=== PATIENT | female | born 1985 | race Caucasian/White ===

== ENCOUNTER 2018-09-02 05:13 | Inpatient (IN) ==
[2018-09-02] MEDS ORDERED: OXYTOCIN 20 UNITS in RINGER'S SOLUTION,LACTATED 1,000 ML IV ONE (05:29)
[2018-09-02] MEDS ORDERED: ceFAZolin SODIUM/DEXTROSE,ISO 2 GM/50 ML BAG IV ONE (05:29)
[2018-09-02] MEDS ORDERED: RINGER'S SOLUTION,LACTATED 1,000 ML IV PRN (05:29)
[2018-09-02] MEDS: RINGER'S SOLUTION,LACTATED 1,000 ML IV PRN ×2 (07:04→09:44)
--- NOTE | 2018-09-02 07:28 | ANES ---
Anesthesia Pre Procedure Eval Vitals/Labs: Last Vital Signs Temp 36.5 C 09/02/18 05:30 Pulse 88 09/02/18 05:30 Resp 20 09/02/18 05:30 BP 124/81 09/02/18 05:30 Pulse Ox 97 09/02/18 05:30 HOME MEDICATIONS Pnv No.122/Iron/Folic Acid [ Multi Tablet] 1 ea PO DAILY 01/29/18 [Last Taken Unknown] albuterol sulfate HFA 90 mcg/actuation aerosol inhaler 2 inh IH Q6H PRN 04/28/18 [Last Taken Unknown] ferrous sulfate 325 mg (65 mg iron) tablet 325 mg PO DAILY #30 tab 06/18/18 [Last Taken Unknown] Allergies/Adverse Reactions: Allergies Allergy/AdvReac Type Severity Reaction Status Date / Time meperidine [From Demerol] Allergy Mild Hives Verified 08/27/18 10:29 - Planned Procedure Planned Procedure: Repeat , poss. Abdominal Scar Revision Medication List Reviewed:: Yes Allergies Verified: Yes Medical History (Last Reviewed 09/02/18 @ 07:27 by Filemon Allison CRNA) Tobacco abuse (Inactive) Onset Date: ~03/01/14 Richar-Danlos syndrome (Chronic) Onset Date: ~2015 History of acute respiratory distress syndrome (ARDS) (Resolved) Onset Date: ~2010 medically induced coma x 1 month, ARDS, placed on vent Depression (Acute) Onset Date: ~2010 treated with Lexapro, no current meds. Asthma (Acute) Onset Date: ~2004 1 hospitalization. Pt has albuterol inhaler for PRN use. Anemia Onset Date: 06/18/18 w/ Migraine Bowel perforation Onset Date: ~05/2011 perforation during a cholecystectomy at [facility], pt became septic, transferred to [facility]. She was placed in medically induced coma x 1 month, developed ARDS and placed on a ventilator. History of chlamydia infection Onset Date: ~2001 History of wisdom tooth extraction Onset Date: ~2002 Surgical History (Last Reviewed 09/02/18 @ 07:27 by Filemon Allison CRNA) Previous section (Resolved) 2001- size, 2006-repeat c/s History of tonsillectomy and adenoidectomy Onset Date: ~2002 Hx of cholecystectomy Onset Date: ~2010 bowel perforation, sepsis, ARDS, ventilator Family History (Last Reviewed 09/02/18 @ 07:27 by Filemon Allison CRNA) Father Hypertension Mother Multiple sclerosis Glaucoma Myocardial infarction Cardiac arrest Anoxia of brain d/t cardiac arrest 05/2018. Projected 6 months for healing. Family/Other Richar-Danlos syndrome Grandfather Black lung disease Grandmother Hypertension Diabetes Glaucoma CAD (coronary artery disease) TIA (transient ischemic attack) - Family Anesthesia History Family History:: no untoward family reactions to anesthesia - Airway/Neck/Teeth Within Normal Limits:: Yes Teeth Condition: Intact Neck Exam: full range of motion, normal inspection Mallampatti Score: 2 Thyromental (T-M) distance: > 6 cm Mandibulo Hyoid distance: > 3 cm - Respiratory Respiratory: lungs clear, normal breath sounds Smoking Status: Current every day smoker Discussed smoking cessation including day of surgery: Yes Sleep Apnea currently treated: No Sleep Apnea by current assessment: No - Cardiovascular Patient History - Cardiac/Respiratory: Asthma Tolerates Activity: Good Heart Sounds: S1 & S2, Regular - Anesthesia Assessment and Plan ASA Class: PS, II Anesthesia Type Plan: Spinal - bilat TAP block for postop analgesia
[2018-09-02] MEDS ORDERED: SENNOSIDES 8.6 MG TABLET PO PRN (09:39)
[2018-09-02] MEDS ORDERED: ONDANSETRON HCL/PF 2 MG/ML VIAL IV PRN (09:39)
[2018-09-02] MEDS ORDERED: oxyCODONE HCL/ACETAMINOPHEN 1 TAB TABLET PO PRN (09:39)
[2018-09-02] MEDS ORDERED: SIMETHICONE 80 MG TAB.CHEW PO PRN (09:39)
[2018-09-02] MEDS ORDERED: BISACODYL 10 MG SUPP.RECT RC PRN (09:39)
--- NOTE | 2018-09-02 09:46 | OR ---
Operative Report - Dictated Report Narrative: Indication: 32-year-old 5 para 2021 at 39 2/7 weeks with prior section desires repeat section Pre Operative Diagnosis: 39 2/7-week intrauterine , Prior section x2, Asthma, Ehlor Danlos syndrome Post Operative Diagnosis: Same. Procedure: Repeat low transverse section. Abdominal scar revision -18 cm Surgeon: Fátima Luu DO Safety Consultant: OR staff Anesthesia: Spinal, TAP block Estimated Blood Loss: 200 mL Urine Output: 200 mL clear urine Fluids Replacement: 1500 mL of crystalloid Drains: Nagel to gravity Surgical Complications: None Specimens: Placenta to freezer Findings: Female born at 0830 on 09/02/2017 in cephalic presentation with Apgars 9 and 9, weighing 3171 g. Normal uterus, tubes, ovaries. Filmy adhesions to the uterus and anterior abdominal wall, thickened scar tissue along the anterior fascia. Technique: The patient was taken to the operating room and placed in dorsal supine position with a left lateral tilt. After adequate spinal anesthesia, nagel catheter inserted, SCDs placed, and 2 g of Ancef given preoperatively, the previous scar was excised in an elliptical fashion and the abdominal cavity was entered using sharp and blunt dissection. Two rolled laps were placed in the pericolic gutters on either side of the uterus. A transverse incision was made in the lower uterine segment and extended laterally and upwardly with digital traction. Clear fluid was noted upon amniotomy. The was delivered easily. The cord was clamped and cut after approximately 1 minute and the infant was handed off to awaiting peditrician. The placenta was allowed to deliver spontaneously. The uterus was cleared of clot and debris. Uterine incision was closed with 0 Vicryl using a running locked stitch. A second imbricating layer was placed. Excellent hemostasis was noted. The rolled laps were removed from the abdominal cavitiy. The peritoneum was closed with a running 3-0 Monocryl. The same suture was used to approximate the rectus and pyramidalis muscles. The fascia was closed with a running 0 Vicryl. The subcutaneous layer was closed with a running 3-0 Monocryl. The same suture was used to approximate the subdermal layer. The skin was closed with a running 4-0 Monocryl. 3 interrupted sutures were placed using 4-0 Monocryl to allow better approximation of the incision. Dermabond was placed over the incision. Sponge, lap, needle, and instrument count were correct x 2. Disposition: To post anesthesia care unit in good condition
--- NOTE | 2018-09-02 09:52 | ANES ---
Post Anesthesia Discharge - Transfer of Care Transfer of Care handoff given to nurse: Yes - Discharge from PACU Discharge from PACU when meets criteria: Yes
[2018-09-02] MEDS: oxyCODONE HCL/ACETAMINOPHEN 1 TAB TABLET PO PRN ×5 (10:50→23:04)
[2018-09-02] MEDS: IBUPROFEN 800 MG TABLET PO PRN ×3 (10:51→23:03)
--- NOTE | 2018-09-02 12:21 | ANES ---
Post Anesthesia Assessment - Vital Signs Vitals: Last Vital Signs Temp 36.6 C 09/02/18 11:45 Pulse 71 09/02/18 11:45 Resp 20 09/02/18 11:45 BP 133/71 09/02/18 11:45 Pulse Ox 98 09/02/18 11:45 Airway Patency: Normal - Mental Status Level Of Consciousness: Awake - Pain Level Pain Score: 6 - N/V Assessment Nausea/Vomiting Presence: None Dehydration:: No
--- NOTE | 2018-09-02 12:38 | ANES ---
Anesthesia Procedure Note Procedure Note: ANESTHESIA PROCEDURE NOTE Date of procedure: 09/02/2018. Time of procedure:[]. 50 Performed by: Chauncey Allison CRNA Radiation Therapy Technologist: [] Alexus Marquez RN . Preprocedure diagnosis: []. Status post section. Desire for postoperative analgesia. Post procedure diagnosis: Same. Procedure:[] Bilateral ultrasound-guided tap block. Indications: []. Postop analgesia Findings: [] Patient brought to PACU and placed in a supine position. Patient's right abdominal wall was prepped with ChloraPrep. Ultrasound was utilized to identify fascial layer between internal oblique and trans-abdominus muscles. A 20-gauge 4 inch regional block needle was advanced under ultrasound guidance until tip of needle was located just posterior to fascial layer. 20 mL of 0.25% Marcaine with epinephrine 1 200,000 was injected with adequate spread of local anesthesia noted. Procedure was then repeated on patient's left side. EBL: Minimal. Fluids: N/A. Specimen: N/A. Post procedure condition: The patient tolerated the procedure well. No complications were noted. Thank you for this consultation Chauncey Allison CRNA
[2018-09-02] MEDS: ENOXAPARIN SODIUM 40 MG/0.4 ML SYRG SC SCH (16:56)
[2018-09-02] MEDS: DOCUSATE SODIUM 100 MG CAPSULE PO SCH (20:04)
[2018-09-03] MEDS: oxyCODONE HCL/ACETAMINOPHEN 1 TAB TABLET PO PRN ×4 (04:48→19:41)
[2018-09-03] MEDS: IBUPROFEN 800 MG TABLET PO PRN ×3 (07:48→21:22)
[2018-09-03] MEDS: DOCUSATE SODIUM 100 MG CAPSULE PO SCH ×3 (07:48→21:21)
--- NOTE | 2018-09-03 09:18 | PN ---
Subjective - Date and Time Seen Date: 09/03/18 Time: 09:17 Objective - Vitals Vitals: Last Vital Signs Temp 36.6 C 09/03/18 05:00 Pulse 67 09/03/18 05:00 Resp 18 09/03/18 01:00 BP 128/69 09/03/18 05:00 Pulse Ox 96 09/03/18 05:00 Patient denies complaints. Tolerating regular diet. Ambulating without difficulty. Pain well controlled. Lochia wnl. Abdomen - soft, appropriately tender Incision -clean, dry, intact uterus - firm, at umbilicus -1 no calf tenderness Impression: Post op day #1 s/p repeat section with abdominal scar revision. Asthma-stable. The Ehlor Danlos syndrome-stable. Plan: Continue routine post-operative/ care Cauti Physician Documentation - Urinary Catheter Management Urethral (Dangelo) Date of Insertion: 09/02/18 Time of Insertion: 08:10 Date of Removal: 09/02/18 Time of Removal: 17:00
[2018-09-03] MEDS: ENOXAPARIN SODIUM 40 MG/0.4 ML SYRG SC SCH (17:03)
[2018-09-04] MEDS: oxyCODONE HCL/ACETAMINOPHEN 1 TAB TABLET PO PRN ×5 (00:14→23:06)
[2018-09-04] MEDS: IBUPROFEN 800 MG TABLET PO PRN ×3 (08:21→21:22)
[2018-09-04] MEDS: DOCUSATE SODIUM 100 MG CAPSULE PO SCH ×2 (08:21→20:13)
--- NOTE | 2018-09-04 13:54 | PN ---
Subjective - Date and Time Seen Date: 09/04/18 Time: 13:53 Objective - Vitals Vitals: Last Vital Signs Temp 36.5 C 09/04/18 09:00 Pulse 66 09/04/18 09:00 Resp 18 09/04/18 09:00 BP 133/69 09/04/18 09:00 Pulse Ox 98 09/04/18 09:00 Patient denies complaints. Ambulating well. Tolerating regular diet. Pain well controlled. Lochia wnl. Abdomen - soft, appropriately tender Incision - clean, dry, intact Uterus - firm, at umbilicus -2 No calf tenderness Impression: Post op day #2 s/p repeat section with abdominal scar revision. Asthma-stable. Plan: Continue routine post-operative/ care Cauti Physician Documentation - Urinary Catheter Management Urethral (Dangelo) Date of Insertion: 09/02/18 Time of Insertion: 08:10 Date of Removal: 09/02/18 Time of Removal: 17:00
[2018-09-04] MEDS: ENOXAPARIN SODIUM 40 MG/0.4 ML SYRG SC SCH (17:53)
[2018-09-05] MEDS: oxyCODONE HCL/ACETAMINOPHEN 1 TAB TABLET PO PRN ×2 (05:49→10:01)
[2018-09-05] MEDS: IBUPROFEN 800 MG TABLET PO PRN (05:49)
[2018-09-05 06:56] VITALS: BP 136/82
[2018-09-05] MEDS: DOCUSATE SODIUM 100 MG CAPSULE PO SCH (10:47)
--- NOTE | 2018-09-05 12:17 | PN ---
Subjective - Date and Time Seen Date: 09/05/18 Time: 12:15 Objective - Vitals Vitals: Last Vital Signs Temp 36.9 C 09/05/18 06:54 Pulse 60 09/05/18 06:54 Resp 14 09/05/18 06:54 BP 136/82 09/05/18 06:54 Pulse Ox 98 09/05/18 06:54 Patient denies complaints. Ambulating without difficulty. Tolerating regular diet. Pain well controlled. Lochia wnl. Abdomen - soft, appropriately tender Incision - [clean, dry, intact] Uterus - firm, at umbilicus -[3] No calf tenderness Impression: Post op day #3 s/p repeat section. Asthma-stable. 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 Ehler Danlos syndrome-stable. Depression-stable. Plan: Routine discharge instructions Cauti Physician Documentation - Urinary Catheter Management Urethral (Dangelo) Date of Insertion: 09/02/18 Time of Insertion: 08:10 Date of Removal: 09/02/18 Time of Removal: 17:00
--- NOTE | 2018-09-09 10:14 | PN ---
Subjective - Date and Time Seen Date: 09/09/18 Time: 10:14 Objective - Vitals Vitals: Last Vital Signs Temp 36.9 C 09/05/18 06:54 Pulse 60 09/05/18 06:54 Resp 14 09/05/18 06:54 BP 136/82 09/05/18 06:54 Pulse Ox 98 09/05/18 06:54 Cauti Physician Documentation - Urinary Catheter Management Urethral (Dangelo) Date of Insertion: 09/02/18 Time of Insertion: 08:10 Date of Removal: 09/02/18 Time of Removal: 17:00 History for MU Definition: * The number of deliveries resulting in a live the patient experienced prior to current hospitalization * The previous delivery of live twins or any live multiple gestation is considered one live event. *If primagravida or nulliparous is documented select zero for the number of previous live births. Live Events: 2
== END 2018-09-05 13:15 | disposition home or self-care (01) | DRG 787 ==
LOC: MS 05:13
PROVIDERS: ADMIT Obstetrics & Gynecology; ATTEND Obstetrics & Gynecology
CPT/HCPCS: 59025

== ENCOUNTER 2020-07-28 21:38 | Inpatient (IN) ==
[2020-07-28] MEDS ORDERED: EPINEPHrine 1 MG/ML AMPUL ONE (23:34)
[2020-07-28] MEDS ORDERED: NORMAL SALINE 20 ML VIAL ONE (23:34)
[2020-07-28] MEDS ORDERED: BUPIVACAINE HCL/EPINEPHRINE 50 ML VIAL IJ ONE (23:35)
[2020-07-28] MEDS ORDERED: ceFAZolin SODIUM 1 GM VIAL ONE (23:36)
--- NOTE | 2020-07-28 23:38 | ANES ---
Anesthesia Pre Procedure Eval Vitals/Labs: Last Vital Signs Temp 36.5 C 07/28/20 22:38 Pulse 87 07/28/20 22:38 Resp 16 07/28/20 22:38 BP 120/65 07/28/20 22:38 Pulse Ox 96 07/28/20 22:38 HOME MEDICATIONS albuterol sulfate 90 mcg/actuation aerosol inhaler 2 inh IH Q6H PRN 04/28/18 [Last Taken Unknown] prenat.vits,nav,[id number] 1 tab PO DAILY 01/10/20 [Last Taken 07/28/20] trazodone 50 mg tablet 50 mg PO HS #30 tab 05/23/20 [Last Taken Unknown] ferrous sulfate 325 mg (65 mg iron) tablet,delayed release 325 mg PO DAILY #30 tab 05/24/20 [Last Taken 07/28/20] Allergies/Adverse Reactions: Allergies Allergy/AdvReac Type Severity Reaction Status Date / Time meperidine [From Demerol] Allergy Mild Hives Verified 07/24/20 15:55 potassium Allergy RASH Verified 07/24/20 15:55 - Planned Procedure Planned Procedure: Medication List Reviewed:: Yes Allergies Verified: Yes Medical History (Last Reviewed 07/28/20 @ 23:37 by Filemon Allison CRNA) Anemia (Acute) Onset Date: 06/18/18 w/pregnancies Tobacco abuse (Inactive) Onset Date: ~03/01/14 Richar-Danlos syndrome (Chronic) Onset Date: ~2015 History of acute respiratory distress syndrome (ARDS) (Resolved) Onset Date: ~2010 medically induced coma x 1 month, ARDS, placed on vent Depression (Acute) Onset Date: ~2010 treated with Lexapro, no current meds. Asthma (Acute) Onset Date: ~2004 1 hospitalization. Pt has albuterol inhaler for PRN use. Migraine Bowel perforation Onset Date: ~05/2011 perforation during a cholecystectomy at [facility], pt became septic, transferred to [facility]. She was placed in medically induced coma x 1 month, developed ARDS and placed on a ventilator. History of chlamydia infection Onset Date: ~2001 Surgical History (Last Reviewed 07/28/20 @ 23:37 by Filemon Allison CRNA) Previous section (Resolved) Onset Date: ~2001 2001- size, 2006-repeat c/s, 2018-rpt . Abdominal Scar Revision Onset Date: 09/02/18 History of tonsillectomy and adenoidectomy Onset Date: ~2002 History of wisdom tooth extraction Onset Date: ~2002 Hx of cholecystectomy Onset Date: ~2010 bowel perforation, sepsis, ARDS, ventilator Family History (Last Reviewed 07/28/20 @ 23:37 by Filemon Allison CRNA) Father Hypertension Mother Multiple sclerosis Glaucoma Myocardial infarction Cardiac arrest Anoxia of brain d/t cardiac arrest 05/2018. Projected 6 months for healing. Family/Other Richar-Danlos syndrome Grandfather Black lung disease Grandmother Hypertension Diabetes Glaucoma CAD (coronary artery disease) TIA (transient ischemic attack) - Family Anesthesia History Family History:: no untoward family reactions to anesthesia - Airway/Neck/Teeth Within Normal Limits:: Yes Teeth Condition: intact Neck Exam: full range of motion Mallampatti Score: 2 Thyromental (T-M) distance: > 6 cm Mandibulo Hyoid distance: > 3 cm - Respiratory Respiratory History: asthma Respiratory Physical: lungs clear Smoking Status: Current every day smoker Discussed smoking cessation including day of surgery: Yes Sleep Apnea currently treated: No Sleep Apnea by current assessment: No - Cardiovascular Tolerate Activity: Good Heart Sounds: S1 & S2, Regular - Gastrointestinal NPO since: 2099 - Anesthesia Assessment and Plan ASA Class: PS, II, E Anesthesia Type Plan: Spinal - tap block Planned difficult intubation/equipment available: No
[2020-07-28] MEDS ORDERED: RINGER'S SOLUTION,LACTATED 1,000 ML IV PRN (23:48)
[2020-07-28] MEDS ORDERED: Oxytocin/Ringers Lactate 20 UNITS/1,000 ML BAG IV ONE (23:48)
[2020-07-28] MEDS ORDERED: AZITHROMYCIN 500 MG in DEXTROSE 5 % IN WATER 250 ML IV PRN ×2 (23:57)
[2020-07-29] MEDS ORDERED: CEFAZOLIN SODIUM/DEXTROSE,ISO 1 GM/50 ML BAG IV PRN
--- NOTE | 2020-07-29 00:18 | HP ---
Chief Complaint - Chief Complaint Date of Service: 07/28/20 Time of Service: 23:55 Chief Complaint: LOF, contractions History of Present Illness: 34 yo at 37w4d presents to L&D complaining of LOF and contractions of increasing frequency and intensity. This complicated by anemia, asthma, depression, Ehler-Danlos syndrome, migraines, smoker, prior C/S x 3, obesity, 1st trimester UTI, h/o bowel perforation with ARDS. Rh positive Rubella non-immune GBS negative Medical History (Last Reviewed 07/29/20 @ 00:06 by William Luu DO) Anemia (Acute) Onset Date: 06/18/18 w/pregnancies Tobacco abuse (Inactive) Onset Date: ~03/01/14 Richar-Danlos syndrome (Chronic) Onset Date: ~2015 History of acute respiratory distress syndrome (ARDS) (Resolved) Onset Date: ~2010 medically induced coma x 1 month, ARDS, placed on vent Depression (Acute) Onset Date: ~2010 treated with Lexapro, no current meds. Asthma (Acute) Onset Date: ~2004 1 hospitalization. Pt has albuterol inhaler for PRN use. Migraine Bowel perforation Onset Date: ~05/2011 perforation during a cholecystectomy at [facility], pt became septic, transferred to [facility]. She was placed in medically induced coma x 1 month, developed ARDS and placed on a ventilator. History of chlamydia infection Onset Date: ~2001 Surgical History: Surgical History (Last Reviewed 07/29/20 @ 00:06 by William Luu DO) Previous section (Resolved) Onset Date: ~2001 2001- size, 2006-repeat c/s, 2017-rpt . Abdominal Scar Revision Onset Date: 09/02/18 History of tonsillectomy and adenoidectomy Onset Date: ~2002 History of wisdom tooth extraction Onset Date: ~2002 Hx of cholecystectomy Onset Date: ~2010 bowel perforation, sepsis, ARDS, ventilator Family History: Family History (Last Reviewed 07/29/20 @ 00:06 by William Luu DO) Father Hypertension Mother Multiple sclerosis Glaucoma Myocardial infarction Cardiac arrest Anoxia of brain d/t cardiac arrest 05/2018. Projected 6 months for healing. 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 current occupational exposures/hazards: Yes current occupational exposures/hazards comment: Exposure to cat litter Highest education level completed: GED or equivalent Service: No Tobacco: Smoking Status: Current every day smoker tobacco type: cigarettes Smoking cigarettes per day: 7 who is smoking: parent quit status: considering quitting counseling given: provider counseling, counseling >3 minutes Alcohol: alcohol intake: former Substance Use: substance use type: does not use Dietary Habits: caffeine: Yes caffeine comment: 2/daily Type: carbonated beverages, coffee Review Of Systems (GEN) - Review of Systems Generalized/Overall Review: Present: No Symptoms Reported EENTM: Present: No Symptoms Reported Respiratory: Present: No Symptoms Reported Cardiac: Present: No Symptoms Reported Abdominal: Present: Other - contractions and lower abdominal pain Genitourinary: Present: Other - LOF Musculoskeletal: Present: No Symptoms Reported Neurological: Present: No Symptoms Reported Skin: Present: No Symptoms Reported Immunizations: IMMUNIZATION HX Immunizations Up to Date Yes History of Influenza Vaccine Yes Hx Pneumococcal Vaccination No Allergies/Adverse Reactions: Allergies Allergy/AdvReac Type Severity Reaction Status Date / Time meperidine [From Demerol] Allergy Mild Hives Verified 07/24/20 15:55 potassium Allergy RASH Verified 07/24/20 15:55 Home Medications: HOME MEDICATIONS albuterol sulfate 90 mcg/actuation aerosol inhaler 2 inh IH Q6H PRN 04/28/18 [Last Taken Unknown] prenat.vits,nav,tvo-lkqy-[id number] 1 tab PO DAILY 01/10/20 [Last Taken 07/28/20] trazodone 50 mg tablet 50 mg PO HS #30 tab 05/23/20 [Last Taken Unknown] ferrous sulfate 325 mg (65 mg iron) tablet,delayed release 325 mg PO DAILY #30 tab 05/24/20 [Last Taken 07/28/20] Exam - Exam Vital Signs: Vital Signs - Last Taken Temp 36.5 C 07/28/20 22:38 Pulse 87 07/28/20 22:38 Resp 16 07/28/20 22:38 BP 120/65 07/28/20 22:38 Pulse Ox 96 07/28/20 22:38 Constitutional: Present: Alert, Oriented x3, Cooperative ENT Exam: Present: hearing grossly normal Neck: Present: trachea midline. Absent: thyromegaly Breasts: Present: Exam deferred Respiratory: Present: lungs clear Cardiovascular/Chest: Present: normal peripheral pulses, regular rate, rhythm, no edema Abdomen: Present: soft, no rebound tenderness, tender - lower abdomen, other - gravid. Absent: distended /Rectal: Present: Other - Cervix - cl/th/-2, amnioswab negative, no vaginal pooling Extremity: Present: no pedal edema, no calf tenderness Skin Exam: Present: normal color, warm/dry, no cyanosis Neurologic: Present: alert, normal mood/affect, oriented x 3 Appearance: Present: appropriate appearance, appropriate insight Eye contact: Present: cooperative, good eye contact Thoughts: Present: normal thought pattern, normal mood /affect Assessment/Plan - Assessment/Plan (1) First stage of labor established Assessment: Admit for RLTCS. Rapid Covid test ordered. Problem: Acute (2) Previous section Problem: Chronic (3) Tobacco abuse Problem: Chronic (4) Richar-Danlos syndrome Problem: Chronic (5) History of acute respiratory distress syndrome (ARDS) Problem: Resolved (6) Depression Problem: Chronic Qualifiers: Depression Type: major depressive disorder Major depression recurrence: recurrent Active/Remission status: in partial remission Qualified Code(s): F33.41 - Major depressive disorder, recurrent, in partial remission (7) Asthma Problem: Chronic Qualifiers: Asthma severity: mild Asthma persistence: intermittent Asthma complication type: uncomplicated Qualified Code(s): J45.20 - Mild intermittent asthma, uncomplicated (8) Anemia Problem: Chronic Qualifiers: Anemia type: iron deficiency Iron deficiency anemia type: inadequate dietary iron intake Qualified Code(s): D50.8 - Other iron deficiency anemias (9) Obesity (BMI 30-39.9) Problem: Acute (10) Rubella non-immune status, antepartum Problem: Acute Non Stress Test - Status NST: 07/28/20 Weeks Gestation: 37w4d Reason for NST: other - Leaking fluid, threatened labor Monitor Mode: External Acceleration: Present Decelerations: None Variability: Moderate 6-25 bpm Baseline Heart Rate: 130 Activity: reactive - Assessment NST Assessment: other - early labor - Plan NST Plan: Admit to L&D
[2020-07-29] MEDS ORDERED: LIDOCAINE HCL 50 ML VIAL ONE (00:57)
[2020-07-29] MEDS ORDERED: ONDANSETRON HCL/PF 2 MG/ML VIAL ONE (01:40)
[2020-07-29] MEDS ORDERED: fentaNYL CITRATE/PF 50 MCG/ML AMPUL ONE (01:40)
--- NOTE | 2020-07-29 02:16 | OR ---
Operative Report - Dictated Report Narrative: Indication: 34-year-old 6 para 3 at 37 5/7 weeks with prior section x3 presents to labor and delivery in labor. status: Urgent Pre Operative Diagnosis: 37 five 7-week intrauterine . Prior section x3. Labor. Post Operative Diagnosis: Same. Procedure: Repeat low transverse section. Surgeon: Fátima Luu DO Director Of Enterprise Architecture: OR Staff Anesthesia: Spinal, TAP block Estimated Blood Loss: 300 mL Urine Output: 200 mL clear urine Fluids Replacement: 1500 mL of crystalloid Drains: Nagel to gravity Surgical Complications: None Specimens: Placenta to freezer Findings: Male born at 01 22 on 07/29/2019 with Apgars 8 and 9, weighing 2995 g in cephalic presentation. Normal uterus, tubes, ovaries Technique: The patient was taken to the operating room and placed in dorsal supine position with a left lateral tilt. Zithromax 500 mg was given intravenously preoperatively. After adequate spinal anesthesia, nagel catheter inserted, SCDs placed, and 2 g of Ancef given preoperatively, the abdominal cavity was entered using sharp and blunt dissection. Two rolled laps were placed in the pericolic gutters on either side of the uterus. A transverse incision was made in the lower uterine segment and extended laterally and upwardly with digital traction. Clear fluid was noted upon amniotomy. The retracted up towards the fundus and required vacuum placed to the vertex to help bring the baby out. Total vacuum application time was less than 10 seconds. After delivery of the , the cord was clamped and cut and was handed off to awaiting production control expediter. The placenta was allowed to deliver spontaneously. The uterus was cleared of clot and debris. Uterine incision was closed with 0 Vicryl using a running stitch. A second imbricating layer was placed. Excellent hemostasis was noted. The rolled laps were removed from the abdominal cavitiy. The peritoneum was closed with a running 3-0 Monocryl. The same suture was used to approximate the rectus and pyramidalis muscles. The fascia was closed with a running 0 Vicryl. The subcutaneous layer was closed with a running 3-0 Monocryl. The same suture was used to approximate the subdermal layer. The skin was closed with a running 4-0 Monocryl and Dermabond. Sponge, lap, needle, and instrument count were correct x 2. Disposition: To post anesthesia care unit in good condition History for MU History for MU Definition: * The number of deliveries resulting in a live the patient experienced prior to current hospitalization * The previous delivery of live twins or any live multiple gestation is considered one live event. *If primagravida or nulliparous is documented select zero for the number of previous live births. Live Events: Live Events: 3
[2020-07-29] MEDS ORDERED: ALBUTEROL SULFATE 200 PUFF INHALER IH PRN (02:20)
[2020-07-29] MEDS ORDERED: SENNOSIDES 8.6 MG TABLET PO PRN (02:20)
[2020-07-29] MEDS ORDERED: ONDANSETRON HCL/PF 2 MG/ML VIAL IV PRN (02:20)
[2020-07-29] MEDS ORDERED: BISACODYL 10 MG SUPP.RECT RC PRN (02:20)
--- NOTE | 2020-07-29 02:32 | ANES ---
Post Anesthesia Assessment - Vital Signs Vitals: Last Vital Signs Temp 36.2 C 07/29/20 02:30 Pulse 76 07/29/20 02:30 Resp 16 07/29/20 02:30 BP 127/58 07/29/20 02:30 Pulse Ox 97 07/29/20 02:30 Airway Patency: Normal - Mental Status Level Of Consciousness: Awake - Pain Level Pain Score: 3 - N/V Assessment Nausea/Vomiting Presence: None Dehydration:: No
--- NOTE | 2020-07-29 02:32 | ANES ---
Post Anesthesia Discharge - Transfer of Care Transfer of Care handoff given to nurse: Yes - Discharge from PACU Discharge from PACU when meets criteria: Yes
--- NOTE | 2020-07-29 02:34 | ANES ---
Anesthesia Procedure Note Procedure Note: ANESTHESIA PROCEDURE NOTE Date of procedure: 07/29/2020. Time of procedure: 11 29. Performed by: Chauncey Allison CRNA [employer]el Builder: Alexus Marquez RN . Preprocedure diagnosis: Previous section. Post procedure diagnosis: Same. Procedure: Ultrasound-guided bilateral tap block Indications: Post operative analgesia. Findings: Patient is placed in a supine position in the PACU. Patient's right abdominal wall was prepped with ChloraPrep. Ultrasound utilized to identify the fascial layer between the internal oblique and transversus abdominis muscles. 20-gauge 4 inch regional block needle was advanced under ultrasound guidance till tip of needle was placed just distally to the fascial layer. A total of 20 mL of 0.25% Marcaine with epinephrine 1-200,000 was injected with adequate spread of local anesthesia noted. Procedure was then repeated on the patient's left side. EBL: Minimal. Fluids: N/A. Specimen: N/A. Post procedure condition: The patient tolerated the procedure well. No complications were noted. Thank you for this consultation Chauncey Allison CRNA
[2020-07-29] MEDS: IBUPROFEN 800 MG TABLET PO PRN ×3 (03:24→17:02)
[2020-07-29] MEDS: oxyCODONE HCL/ACETAMINOPHEN 1 TAB TABLET PO PRN ×6 (03:48→20:43)
[2020-07-29] MEDS ORDERED: ceFAZolin SODIUM 1 GM VIAL IV PRN (06:00)
[2020-07-29] MEDS: DOCUSATE SODIUM 100 MG CAPSULE PO SCH ×2 (09:50→20:43)
[2020-07-29] MEDS: PRENATAL VITS96/IRON FUM/FOLIC 1 TAB TABLET PO SCH (09:50)
[2020-07-29] MEDS: ENOXAPARIN SODIUM 40 MG/0.4 ML SYRG SC SCH (09:51)
[2020-07-29] MEDS: FERROUS SULFATE 325 MG TABLET PO SCH (09:51)
[2020-07-30] MEDS: oxyCODONE HCL/ACETAMINOPHEN 1 TAB TABLET PO PRN ×4 (01:48→22:38)
[2020-07-30] MEDS: IBUPROFEN 800 MG TABLET PO PRN ×4 (01:48→22:37)
[2020-07-30] MEDS: traZODone HCL 50 MG TABLET PO SCH ×2 (03:36→21:15)
[2020-07-30] MEDS: FERROUS SULFATE 325 MG TABLET PO SCH (09:23)
[2020-07-30] MEDS: DOCUSATE SODIUM 100 MG CAPSULE PO SCH ×2 (09:23→20:57)
[2020-07-30] MEDS: PRENATAL VITS96/IRON FUM/FOLIC 1 TAB TABLET PO SCH (09:23)
[2020-07-30] MEDS: ENOXAPARIN SODIUM 40 MG/0.4 ML SYRG SC SCH (09:32)
--- NOTE | 2020-07-30 11:39 | PN ---
Subjective - Date and Time Seen Date: 07/30/20 Time: 11:39 Objective - Vitals Vitals: Last Vital Signs Temp 36.2 C 07/30/20 09:30 Pulse 69 07/30/20 09:30 Resp 16 07/30/20 09:30 BP 126/85 07/30/20 09:30 Pulse Ox 97 07/30/20 09:30 Patient denies complaints. Tolerating regular diet. Ambulating without difficulty. Pain well controlled. Lochia wnl. Abdomen - soft, appropriately tender Incision -clean, dry, intact uterus - firm, at umbilicus -1 No calf tenderness Impression: Post op day #1 s/p repeat section. Plan: Continue routine post-operative/ care Cauti Physician Documentation - Urinary Catheter Management Urethral (Dangelo) Date of Insertion: 07/29/20 Time of Insertion: 00:45 Date of Removal: 07/29/20 Time of Removal: 13:45 Assessment/Plan - Problems/Diagnosis (1) First stage of labor established Problem: Acute (2) Previous section Problem: Chronic (3) Tobacco abuse Problem: Chronic (4) Richar-Danlos syndrome Problem: Chronic (5) History of acute respiratory distress syndrome (ARDS) Problem: Resolved (6) Depression Problem: Chronic Qualifiers: Depression Type: major depressive disorder Major depression recurrence: recurrent Active/Remission status: in partial remission Qualified Code(s): F33.41 - Major depressive disorder, recurrent, in partial remission (7) Asthma Problem: Chronic Qualifiers: Asthma severity: mild Asthma persistence: intermittent Asthma complication type: uncomplicated Qualified Code(s): J45.20 - Mild intermittent asthma, uncomplicated (8) Anemia Problem: Chronic Qualifiers: Anemia type: iron deficiency Iron deficiency anemia type: inadequate dietary iron intake Qualified Code(s): D50.8 - Other iron deficiency anemias (9) Obesity (BMI 30-39.9) Problem: Acute (10) Rubella non-immune status, antepartum Problem: Acute
[2020-07-30] MEDS: SIMETHICONE 80 MG TAB.CHEW PO PRN (13:38)
[2020-07-31] MEDS: oxyCODONE HCL/ACETAMINOPHEN 1 TAB TABLET PO PRN ×3 (02:04→12:24)
[2020-07-31] MEDS: IBUPROFEN 800 MG TABLET PO PRN (05:10)
[2020-07-31 06:52] VITALS: BP 133/83
[2020-07-31] MEDS: DOCUSATE SODIUM 100 MG CAPSULE PO SCH (09:30)
[2020-07-31] MEDS: FERROUS SULFATE 325 MG TABLET PO SCH (09:30)
[2020-07-31] MEDS: PRENATAL VITS96/IRON FUM/FOLIC 1 TAB TABLET PO SCH (09:30)
[2020-07-31] MEDS: SIMETHICONE 80 MG TAB.CHEW PO PRN (09:30)
[2020-07-31] MEDS: ENOXAPARIN SODIUM 40 MG/0.4 ML SYRG SC SCH (09:31)
[2020-07-31] MEDS ORDERED: FLU VACC QS2020-21(6MOS UP)/PF 60 MCG/0.5 ML SYRINGE IM ONE (09:49)
--- NOTE | 2020-07-31 10:57 | PN ---
Subjective - Date and Time Seen Date: 07/31/20 Time: 08:55 Objective - Vitals Vitals: Last Vital Signs Temp 36.4 C 07/31/20 06:50 Pulse 65 07/31/20 06:50 Resp 16 07/31/20 06:50 BP 133/83 07/31/20 06:50 Pulse Ox 98 07/31/20 06:50 Patient denies complaints. Ambulating well. Tolerating regular diet. Pain well controlled. Lochia wnl. Abdomen - soft, appropriately tender Incision -clean, dry, intact uterus - firm, at umbilicus -2 No calf tenderness Impression: Post op day #2 s/p repeat section. Plan: Continue routine post-operative/ care. Routine discharge instructions. Cauti Physician Documentation - Urinary Catheter Management Urethral (Dangelo) Date of Insertion: 07/29/20 Time of Insertion: 00:45 Date of Removal: 07/29/20 Time of Removal: 13:45 Assessment/Plan - Problems/Diagnosis (1) First stage of labor established Problem: Acute (2) Previous section Problem: Chronic (3) Tobacco abuse Problem: Chronic (4) Richar-Danlos syndrome Problem: Chronic (5) History of acute respiratory distress syndrome (ARDS) Problem: Resolved (6) Depression Problem: Chronic Qualifiers: Depression Type: major depressive disorder Major depression recurrence: recurrent Active/Remission status: in partial remission Qualified Code(s): F33.41 - Major depressive disorder, recurrent, in partial remission (7) Asthma Problem: Chronic Qualifiers: Asthma severity: mild Asthma persistence: intermittent Asthma complication type: uncomplicated Qualified Code(s): J45.20 - Mild intermittent asthma, uncomplicated (8) Anemia Problem: Chronic Qualifiers: Anemia type: iron deficiency Iron deficiency anemia type: inadequate dietary iron intake Qualified Code(s): D50.8 - Other iron deficiency anemias (9) Obesity (BMI 30-39.9) Problem: Acute (10) Rubella non-immune status, antepartum Problem: Acute
--- NOTE | 2020-07-31 11:00 | DS ---
OB Discharge Summary (1) First stage of labor established Status: Resolved (2) Previous section Status: Chronic (3) Tobacco abuse Status: Chronic (4) Richar-Danlos syndrome Status: Chronic (5) History of acute respiratory distress syndrome (ARDS) Status: Resolved (6) Depression Status: Chronic Qualifiers: Depression Type: major depressive disorder Major depression recurrence: recurrent Active/Remission status: in partial remission Qualified Code(s): F33.41 - Major depressive disorder, recurrent, in partial remission (7) Asthma Status: Chronic Qualifiers: Asthma severity: mild Asthma persistence: intermittent Asthma complication type: uncomplicated Qualified Code(s): J45.20 - Mild intermittent asthma, uncomplicated (8) Anemia Status: Chronic Qualifiers: Anemia type: iron deficiency Iron deficiency anemia type: inadequate dietary iron intake Qualified Code(s): D50.8 - Other iron deficiency anemias (9) Obesity (BMI 30-39.9) Status: Acute (10) Rubella non-immune status, antepartum Status: Acute Delivery Date: 07/29/20 Delivery Time: 10:00 :: 6 Para:: 4 Gestational weeks:: 37 Gestational days:: 5 Intrapartum Procedures: Delivered, Secondary Section, Delivery-Low Transverse, Anesthesia - Spinal /OP Complications: No Complications Discharge Diagnosis: Term -Delivered, Rubella Nonimmune - Discharge Information Date of Discharge: 07/31/20 Hospital Course: 34-year-old 6 para 3 admitted at 37 or seventh weeks for an early labor with a prior section x3. Patient underwent a repeat low transverse section without complications. course was uncomplicated. Disposition: Home self-care Condition: Good Referrals: Susan Presley ARNP [Primary Care Provider] - Activity on Discharge:: Pelvic Rest, No lifting Discharge Diet: General/regular food Additional Patient Instructions (free text): Fanta your follow up appointment is scheduled for FridayAugust 14 @ 10:[address] Luu. Maximiliano's follow up appointment is scheduled for FridayAugust 01 @ 4:[address] Berry. His blood type is A+ Discharge weight 6 lbs 1.7 oz Discharge bilirubin 10.1 @ 56 hours of age Continue to breastfeed him at least every 2-3 hours. Supplement 20-45 mls after feeding. Start Maximiliano on Vitamin D drops. Always place him on his back to sleep in his own bassinet or crib. No loose b lankets, bumper pads, stuffed animals or pillows. Thank you for choosing [facility]. If you have any questions or concerns please don't hesitate to call us at [phone]. Prescriptions (Any new or edited meds): Ibuprofen [Motrin] 200 - 800 mg PO Q6H PRN #100 tab PRN Reason: Pain oxyCODONE HCL/ACETAMINOPHEN [Percocet 5 MG/325 MG] 1 tab PO Q4H PRN #10 tab PRN Reason: Moderate Pain Transmission Status: Received by [id number] Complete Home Medications List: Complete Home Medication List: albuterol sulfate 90 mcg/actuation aerosol inhaler 2 inh IH Q6H PRN 04/28/18 prenat.vits,nav,[id number] 1 tab PO DAILY 01/10/20 trazodone 50 mg tablet 50 mg PO HS #30 tab 05/23/20 ferrous sulfate 325 mg (65 mg iron) tablet,delayed release 325 mg PO DAILY #30 tab 05/24/20 Ibuprofen [Motrin] 200 - 800 mg PO Q6H PRN #100 tab 07/30/20 oxyCODONE HCL/ACETAMINOPHEN [Percocet 5 MG/325 MG] 1 tab PO Q4H PRN #10 tab 07/30/20 - Plan Discharge to:: Home Follow up in office in:: 2 weeks - [place] Information Weight (Grams): 2,995 Sex: Male Score 1 min: 8 Score 5 min: 9 Circumcision: Yes Infant Complications: Other Other Complications: subgaleal hematoma/vacuum x1, Nodual on neck, tongue tied, frenulectomy done.
== END 2020-07-31 15:35 | disposition home or self-care (01) | DRG 787 ==
LOC: OBCLINIC 21:38 → OB 23:16
PROVIDERS: ADMIT Obstetrics & Gynecology; ATTEND Obstetrics & Gynecology